=== PATIENT | female | born 1960 | race Caucasian/White ===

== ENCOUNTER → 2017-06-05 | Outpatient (CLI) | payer OTHER ==
[~2017-06-05] MED LIST: CYCL-259 PO; ERGO500017 PO; ESOM40CA PO; FLUO20TA25 PO; GABA100C PO; HYDR50TA13 PO; LISI-167 PO; MAGN400T7 PO; TRAM50TA2 PO; UBID100C24 PO; probiotics PO
[2017-06-05 09:29] LABS: HEMATOCRIT 44.4 % (34.6-47.8); HEMOGLOBIN 15.1 g/dL (11.7-16.4); WHITE BLOOD COUNT 4.3 x10^3/uL (3.4-10)
[2017-06-05 09:39] LABS: BLOOD UREA NITROGEN 14 mg/dL (7-18); TOTAL IRON BINDING CAPACITY 350 mcg/dL (250-450)
[2017-06-05 10:06] LABS: ASPARTATE AMINO TRANSFERASE 50 U/L (15-37); FERRITIN 93.6 ng/mL (8-252); TRANSFERRIN 280 mg/dL (200-360)
== END | disposition home or self-care (01) ==
LOC: STAR 08:14
PROVIDERS: ATTEND Thoracic Surgery (Cardiothoracic Vascular Surgery)
DX: Z01.818 Encounter for other preprocedural examination (principal)
CPT/HCPCS: 36415; 71020; 80053; 80061; 82306; 82607; 82728; 82746; 83540; 83550; 83970; 84134; 84425; 84466; 85025; 93005

== ENCOUNTER 2017-06-14 07:58 | Inpatient (IN) | payer OTHER ==
[~2017-06-14] VITALS: Ht 170.2 cm; Wt 120.8 kg
[~2017-06-14 07:58] MED LIST changes: +BUPIVACAINE/PF 0.5% ONE
[2017-06-14] MEDS ORDERED: LACTATED RINGERS 1,000 ML IV SCH (08:44)
[2017-06-14 09:05] VITALS: BP 127/81
[2017-06-14] MEDS ORDERED: SCOPOLAMINE PATCH, 1.5MG PATCH.TD72 TD ONE (09:12)
[2017-06-14] MEDS ORDERED: SCOPOLAMINE 1MG PATCH TD ONE (09:30)
[2017-06-14] MEDS ORDERED: SUFentanil 50 MCG/ML, 1ML ONE (09:36)
[2017-06-14] MEDS ORDERED: MIDAZOLAM 1 MG/ML, 2ML ONE ×2 (09:36→13:55)
[2017-06-14] MEDS ORDERED: SODIUM CHLORIDE 0.9% PF 10ML ONE (09:37)
[2017-06-14] MEDS ORDERED: LIDOCAINE-MPF 2% ,5ML ONE (09:38)
[2017-06-14] MEDS ORDERED: PROPOFOL 10 MG/ML, 20ML ONE (09:38)
[2017-06-14] MEDS ORDERED: ROCURONIUM 10 MG/ML,10ML ONE (09:39)
[2017-06-14] MEDS ORDERED: PHENYLEPHRINE 10 MG/ML ONE (09:39)
[2017-06-14] MEDS ORDERED: KETAMINE 10 MG/ML, 20ML ONE (11:32)
[2017-06-14] MEDS ORDERED: CEFOTETAN PMX 2GM/50ML 50 ML IVPB ONE (11:32)
[2017-06-14] MEDS ORDERED: DEXAMETHASONE 4 MG/ML, 1ML ONE ×2 (11:43)
[2017-06-14] MEDS ORDERED: BUPIVACAINE/PF-EPI 0.5% 1:200K IM ONE (11:53)
[2017-06-14] MEDS ORDERED: LABETALOL 5MG/ML, 20ML ONE (11:59)
[2017-06-14] MEDS ORDERED: ONDANSETRON 2MG/ML, 2ML IVPush PRN ×2 (12:00→13:30)
[2017-06-14] MEDS ORDERED: ACETAMINOPHEN 325 MG TABLET PO PRN (12:00)
[2017-06-14] MEDS ORDERED: OXYcodone 5 MG/5 ML ORAL.SOL UDC PO PRN (12:00)
[2017-06-14] MEDS ORDERED: MEPERIDINE/PF 25MG/0.5ML IVPush PRN (12:00)
[2017-06-14] MEDS ORDERED: LABETALOL 5MG/ML, 20ML IV PRN (12:00)
[2017-06-14] MEDS ORDERED: PROMETHAZINE 25 MG/ML, 1ML IV PRN (12:00)
[2017-06-14] MEDS ORDERED: hydrALAzine 20 MG/ML, 1ML IV PRN (12:00)
[2017-06-14] MEDS ORDERED: ONDANSETRON 2MG/ML, 2ML ONE ×2 (12:34)
[2017-06-14] MEDS ORDERED: HYDROmorphone 2 MG/ML, 1ML ONE (13:19)
[2017-06-14] MEDS ORDERED: FENTANYL PF 100 MCG/2ML ONE (13:19)
[2017-06-14] MEDS: HYDROmorphone 1 MG/ML, 1ML IV PRN ×5 (13:27→14:08)
[2017-06-14] MEDS: FENTANYL PF 100 MCG/2ML IV PRN ×2 (13:30→13:37)
[2017-06-14] MEDS ORDERED: PHENOL THROAT SPRAY BOTTLE MM PRN (13:30)
[2017-06-14] MEDS ORDERED: LORazepam 2 MG/ML, 1ML IV PRN (13:30)
[2017-06-14] MEDS ORDERED: ENALAPRILAT 1.25 MG/ML, 2ML IV PRN (13:30)
[2017-06-14] MEDS ORDERED: DIPHENHYDRAMINE 50 MG/ML, 1ML IV PRN (13:30)
[2017-06-14] MEDS ORDERED: DIPHENHYDRAMINE 25 MG CAPSULE PO PRN (13:30)
[2017-06-14] MEDS ORDERED: hydrALAzine 20 MG/ML, 1ML IVPush PRN (13:30)
[2017-06-14] MEDS ORDERED: PROMETHAZINE 12.5 MG SUPP PR PRN (13:30)
[2017-06-14] MEDS ORDERED: PROMETHAZINE 25 MG/ML, 1ML IM PRN (13:30)
[2017-06-14] MEDS ORDERED: MIDAZOLAM 1 MG/ML, 2ML IV PRN (14:00)
[2017-06-14 15:15] VITALS: BP 123/70
[2017-06-14] MEDS: LACTATED RINGERS 1,000 ML IV SCH ×2 (15:31→19:42)
[2017-06-14] MEDS ORDERED: MORPHINE SULFATE 4 MG/ML, 1ML ONE (17:34)
[2017-06-14] MEDS: morphine SULFATE 10 MG/ML, 1ML IVPush PRN ×2 (17:38→19:17)
[2017-06-14 18:41] VITALS: BP 130/78
[2017-06-14] MEDS ORDERED: LISINOPRIL 10 MG TABLET PO SCH (21:00)
[2017-06-14] MEDS ORDERED: GABAPENTIN 100 MG CAPSULE PO SCH (21:00)
[2017-06-14] MEDS: HYDROcodone/APAP 7.5-325MG/15ML UDC PO PRN (21:10)
[2017-06-14] MEDS: FAMOTIDINE 20 MG/2 ML IVPush SCH (21:10)
[2017-06-15 00:02] VITALS: BP 132/79
[2017-06-15] MEDS: LACTATED RINGERS 1,000 ML IV SCH ×2 (00:33→10:02)
[2017-06-15] MEDS: HYDROcodone/APAP 7.5-325MG/15ML UDC PO PRN ×3 (01:20→09:42)
[2017-06-15 04:21] VITALS: BP 106/52
[2017-06-15 05:53] LABS: HEMATOCRIT 40.3 % (34.6-47.8); HEMOGLOBIN 13.5 g/dL (11.7-16.4); WHITE BLOOD COUNT 8.7 x10^3/uL (3.4-10)
[2017-06-15 06:43] LABS: BLOOD UREA NITROGEN 9 mg/dL (7-18)
[2017-06-15 07:31] VITALS: BP 113/72
[2017-06-15] MEDS: FAMOTIDINE 20 MG/2 ML IVPush SCH (08:47)
[2017-06-15 11:30] VITALS: BP 116/71
== END 2017-06-15 12:15 | disposition home or self-care (01) | DRG 621 ==
LOC: ORIP 07:58 → 4NOR 14:44 → DCLOUNGE 06-15 11:52
PROVIDERS: ADMIT Thoracic Surgery (Cardiothoracic Vascular Surgery); ATTEND Thoracic Surgery (Cardiothoracic Vascular Surgery)
PROC: 0BQT4ZZ Repair Diaphragm, Percutaneous Endoscopic Approach (ICD-10-PCS; 2017-06-14)
PROC: 0DB64Z3 Excision of Stomach, Percutaneous Endoscopic Approach, Vertical (ICD-10-PCS; principal; 2017-06-14 10:30)
PROC: 0DP64CZ Removal of Extraluminal Device from Stomach, Percutaneous Endoscopic Approach (ICD-10-PCS; 2017-06-14 10:30)
DX: E66.01 Morbid (severe) obesity due to excess calories (principal); R13.10 Dysphagia, unspecified; E78.1 Pure hyperglyceridemia; I10 Essential (primary) hypertension; K21.9 Gastro-esophageal reflux disease without esophagitis; K44.9 Diaphragmatic hernia without obstruction or gangrene; Z68.41 Body mass index [BMI] 40.0-44.9, adult; J45.909 Unspecified asthma, uncomplicated; F41.9 Anxiety disorder, unspecified; F32.9 Major depressive disorder, single episode, unspecified; G89.4 Chronic pain syndrome; K57.90 Diverticulosis of intestine, part unspecified, without perforation or abscess without bleeding; M19.90 Unspecified osteoarthritis, unspecified site; Z88.0 Allergy status to penicillin; Z90.49 Acquired absence of other specified parts of digestive tract
CPT/HCPCS: 36415; 80048; 82040; 85025; J1100; J1170; J2250; J2405; J2704; J3010; J3490; J2270; J2370; J7120; S0028; S0074

== ENCOUNTER → 2018-11-15 | Outpatient (CLI) | payer OTHER ==
[~2018-11-15] MED LIST changes: -BUPIVACAINE/PF 0.5% ONE
== END | disposition home or self-care (01) ==
LOC: CFH 07:04
PROVIDERS: ATTEND Physician Assistant
DX: Z12.31 Encounter for screening mammogram for malignant neoplasm of breast (principal)
CPT/HCPCS: 77067